=== PATIENT | male | born 1980 | race Asian ===

== ENCOUNTER 2020-01-05 11:34 | Outpatient (CLI) | payer OTHER ==
--- NOTE | 2020-01-05 12:14 | RAD ---
EXAM: Two views chest PROVIDED CLINICAL HISTORY: TB gold positive, asymptomatic. COMPARISON: None FINDINGS: Cardiac silhouette and pulmonary vasculature are within normal limits. The lungs are clear. The osse ous structures have a normal appearance. IMPRESSION: 1. No acute cardiopulmonary process. 2. No radiographic findings on this chest x-ray to suggest active tuberculosis.
== END 2020-01-05 11:35 | disposition home or self-care (01) ==
LOC: BICRAD 11:34
PROVIDERS: ATTEND Family Medicine
DX: R76.11 Nonspecific reaction to tuberculin skin test without active tuberculosis (principal)
CPT/HCPCS: 71046